=== PATIENT | male | born 1970 | race Caucasian/White ===

== ENCOUNTER 2021-05-12 18:25 | Emergency (ER) | payer OTHER, SELFPAY ==
[2021-05-12 18:27] VITALS: BP 133/82; PULSE 125; RESP 22; TEMP 36.4; O2SAT 93; BMI 20.3
--- NOTE | 2021-05-12 19:23 | ED.RN ---
PREPED PT LEFT AC WITH BETADINE, 20 GA IV INSERTED AND BLOOD OBTAINED.
[2021-05-12 19:36] LABS: Absolute Lymphocyte Count 2.49 X10^3/uL (0.83-4.51); Absolute Neutrophil Count 8.3 X10^3/uL (2.0-7.7); Basophil% 0.8 % (0-1); Eosinophil# 0.27 X10^3/uL; Eosinophils% 2.2 % (0-5); Hematocrit 43.4 % (40-54); Hemoglobin 14.6 g/dL (13.0-16.5); Lymphocyte # 2.49 X10^3/ul (0.83-4.51); Lymphocyte % 20.7 % (19-41); Mean Corp Hgb Conc 33.6 g/dL (32-36); Mean Corpuscular Hgb 32.6 pg (27.0-32.0); Mean Corpuscular Volume 96.9 fL (80-94); Mean Platelet Vol. 10.6 fl (6.2-12.0); Monocyte# 0.75 X10^3/uL; Monocyte% 6.2 % (0-10); NRBC Flagged by Analyzer 0 % (0-5); Neutrophil % 69.3 % (47-70); Platelet Count 276 K/mm3 (150-450); RBC Distribution Width CV 13.4 % (11.6-14.6); Red Blood Count 4.48 M/mm3 (4.6-6.2)
[2021-05-12 19:52] LABS: Anion Gap 7 (5-15); BUN 8 mg/dL (7-18); BUN/Creat Ratio 9.7 RATIO (10-20); Chloride 106 mmol/L (98-107); Creatinine, Serum 0.82 mg/dL (0.70-1.30); EST Glomerular Filtration Rate 104 mL/min (>60); Est Glom Filt Rate - Afr Amer 126 mL/min (>60); Estimated Creatinine Clearance 101.41 ml/min; Glucose 116 mg/dL (74-106); Potassium 3.5 mmol/L (3.5-5.1); Sodium Level 139 mmol/L (136-145)
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
--- NOTE | 2021-05-12 21:19 | NURSING ---
NO OLD EKGS
[2021-05-12 23:07] LABS: Troponin-I HS 7 pg/mL (3.0-78.0)
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
[2021-05-13] MEDS: Diphth,Pertuss(Acell),Tet Vac 0.5 ML Vial IM (00:19)
[2021-05-13 00:47] VITALS: BP 118/84; PULSE 99; RESP 18; TEMP 36.6; O2SAT 94
== END 2021-05-13 01:55 | disposition short-term general hospital (02) ==
PROVIDERS: Emergency Provider Emergency Medicine
DX: F10.129 Alcohol abuse with intoxication, unspecified (principal); S22.21XA Fracture of manubrium, initial encounter for closed fracture; F17.210 Nicotine dependence, cigarettes, uncomplicated; V53.5XXA Driver of pick-up truck or van injured in collision with car, pick-up truck or van in traffic accident, initial encounter
CPT/HCPCS: 70450; 71111; 71260; 72125; 73610; 74177; 80048; 82077; 84484; 85025; 87426; 90715; 93005; 96372; 99285; Q9967; A4216